=== PATIENT | male | born 1995 | race Caucasian/White ===

== ENCOUNTER 2018-01-30 22:18 | Emergency (ER) | payer OTHER ==
[2018-01-30 22:29] VITALS: BP 127/81
--- NOTE | 2018-01-30 22:44 | ER Report ---
History and Physical Time Seen By MD: 22:45 Hx. of Stated Complaint: PT WAS BIT BY BAT AT WORK EARLIER THIS EVENING. HPI/ROS CHIEF COMPLAINT: Bat bite HISTORY OF PRESENT ILLNESS: This is a 22-year-old male. He is working at [employer]. A bat bit the end of his right index finger. He felt the bite and it was painful. No obvious skin breakdown. Concerned about the possibility for rabies. Allergies: Coded Allergies: No Known Drug Allergies (Unverified , 01/30/18) Home Meds No Active Prescriptions or Reported Meds Reviewed Nurses Notes: Yes Hx Substance Use Disorder: No Hx Alcohol Use: No Constitutional Vital Sign - Last 24 Hours 01/30/18 22:29 Temp 99.1 Pulse 85 Resp 14 B/P (MAP) 127/81 Pulse Ox 95 O2 Delivery Room Air Physical Exam Gen.: Alert, no acute distress. Skin: No skin breakdown noted, slight tenderness. Medical Decision Making ED Course/Re-evaluation ED Course Discussed rabies prophylaxis. Based on the bite, this is of questionable risk, slightly higher because it is a bat. We will go ahead with the immunoglobulin as well as rabies vaccine. Decision to Disposition Date: Jan 30, 2018 Decision to Disposition Time: 22:59 Depart Departure Latest Vital Signs Vital Signs Date Time Temp Pulse Resp B/P (MAP) Pulse Ox O2 Delivery O2 Flow Rate FiO2 01/30/18 22:29 99.1 85 14 127/81 95 Room Air Impression: Primary Impression: Bat bite of finger Condition: Improved Disposition: HOME OR SELF-CARE New Scripts No Active Prescriptions or Reported Meds Patient Instructions: Animal Bite (ED) Additional Instructions: You will need to have rabies vaccine given on days 0,3,7 and 14. (today 01/30/18, 02/02/18, 02/06/18, and 02/13/18). You will need to contact the [facility] animal [facility] to report the bite. Problem Qualifiers Primary Impression: Bat bite of finger Encounter type: initial encounter Qualified Codes: S61.259A - Open bite of unspecified finger without damage to nail, initial encounter; W55.81XA - Bitten by other mammals, initial encounter RUSSELL WARREN MD Jan 30, 2018 22:44
[2018-01-30] MEDS ORDERED: RABIES IMMUNE GLOB/PF 300 U/ML VIAL IM ONE (22:55)
[2018-01-30] MEDS ORDERED: RABIES VAC(HUMAN) DIPL 2.5/KIT IM ONLY ONE (22:55)
== END 2018-01-31 | disposition home or self-care (01) ==
LOC: ER 22:23
DX: S60.470A Other superficial bite of right index finger, initial encounter (principal); W61.91XA Bitten by other birds, initial encounter; Y93.89 Activity, other specified; Y92.512 Supermarket, store or market as the place of occurrence of the external cause; Y99.0 Civilian activity done for income or pay
CPT/HCPCS: 90375; 90471; 90675; 96372; 99283